=== PATIENT | female | born 1940 | race Caucasian/White ===

== ENCOUNTER → 2017-07-27 14:59 | Outpatient (CLI) | payer MEDICARE, SELFPAY ==
--- NOTE | 2017-07-27 15:03 | RAD_ITS ---
STUDY: X-RAY - RIGHT FOOT CLINICAL: Female, 76 years old. Follow-up third metatarsal fracture TECHNIQUE: 3 view(s) of the foot. COMPARISON: X-rays of the right foot on June 27, 2017 FINDINGS: Normal talus, calcaneus, and tarsal bones. Normal visualized subtalar, talonavicular, calcaneocuboid, tarsal and tarsometatarsal articulations. There is a healing fracture of the midshaft of the third metatarsal and proximal shaft of the second metatarsal. Nonbridging callus formation is noted. The fracture lines are still visualized. There is degenerative arthrosis of the metatarsophalangeal joint of the hallux with a hallux valgus deformity. Normal tibial and fibular sesamoid bones. Normal interphalangeal joint of the great toe. Normal phalanges of the great toe. Normal second through fifth metatarsophalangeal joints. Normal interphalangeal joints and phalanges of the lesser toes. The soft tissue structures are unremarkable. RAD/Foot min 3 Views IMPRESSION: Healing fractures of the proximal second and mid shaft of the third metatarsals with early callus formation. Stable alignment. Electronically Signed: Jeffrey Hollis MD, FACR at 15:46 EST , Service support ,
== END ==
PROVIDERS: Family Provider Family Medicine; PCP Family Medicine; Visit Provider Family Medicine
DX: S92.901A Unspecified fracture of right foot, initial encounter for closed fracture (principal)
CPT/HCPCS: 73630

== ENCOUNTER → 2017-08-28 09:58 | Outpatient (CLI) | payer MEDICARE, SELFPAY ==
--- NOTE | 2017-08-28 10:01 | RAD_ITS ---
STUDY: X-RAY - RIGHT FOOT CLINICAL: Female, 76 years old. Follow-up of metatarsal fracture. TECHNIQUE: 3 view(s) of the foot. COMPARISON: July 27, 2017 FINDINGS: There is generalized osteopenia unchanged. There is an inferior calcaneal spur unchanged. There are healing fractures of the proximal second and mid shaft of the third metatarsals with periosteal reaction at the fracture sites, unchanged. There is stable osteoarthrosis of the metatarsophalangeal and interphalangeal joints. The soft tissue structures are unremarkable. RAD/Foot min 3 Views IMPRESSION: Healing fractures of the second and third metatarsals. No complications. No other significant changes. Electronically Signed: Alonzo Cartagena MD at 16:56 EST , Service support ,
== END ==
PROVIDERS: Family Provider Family Medicine; PCP Family Medicine; Visit Provider Family Medicine
DX: S92.901A Unspecified fracture of right foot, initial encounter for closed fracture (principal); X58.XXXA Exposure to other specified factors, initial encounter
CPT/HCPCS: 73630

== ENCOUNTER → 2018-04-24 13:08 | Outpatient (CLI) | payer MEDICARE, SELFPAY ==
--- NOTE | 2018-04-24 13:12 | RAD_ITS ---
STUDY: X-RAY - RIGHT HAND REASON FOR EXAM: Bilateral hand pain. TECHNIQUE: 3 view(s) of the hand. COMPARISON: None. FINDINGS: There is osteopenia. Normal radiocarpal articulation. Normal distal radioulnar joint. Normal visualized carpal bones. Normal carpal articulations Normal carpometacarpal articulation of the thumb. Normal second through fifth carpometacarpal joints. Normal metacarpi. Normal metacarpophalangeal joint of the thumb. There are marginal osteophytes and severe space narrowing of the interphalangeal joint of the thumb. Normal proximal and distal phalanges of the thumb. Normal metacarpophalangeal joints of the second through fifth fingers. There are marginal osteophytes, central osseous erosions and joint space narrowing of the second through fifth distal interphalangeal joints and fifth interphalangeal joint. Normal phalanges of the second through fifth fingers. There is pericapsular calcifications at the ulnar aspect of the wrist and at the ulnar aspect of the second metacarpophalangeal joint. RAD/Hand Min 3 Views IMPRESSION: Erosive osteoarthritis. Pericapsular calcifications. Osteopenia. Electronically Signed: Thomas Mcclendon MD at 14:14 EDT Tel , Service support ,
--- NOTE | 2018-04-24 13:12 | RAD_ITS ---
STUDY: X-RAY - LEFT HAND REASON FOR EXAM: Bilateral hand pain. TECHNIQUE: 3 view(s) of the hand. COMPARISON: None. FINDINGS: There is osteopenia. Normal radiocarpal articulation. Normal distal radioulnar joint. Normal visualized carpal bones. Normal carpal articulations Normal carpometacarpal articulation of the thumb. Normal second through fifth carpometacarpal joints. Normal metacarpi. Normal metacarpophalangeal joint of the thumb. There is moderate to severe joint space narrowing of the interphalangeal joint of the thumb. Normal proximal and distal phalanges of the thumb. Normal metacarpophalangeal joints of the second through fifth fingers. There is joint space narrowing of the second through fifth distal interphalangeal joints and fifth proximal interphalangeal joint with central osseous erosions of the second and fifth distal interphalangeal joints and second proximal interphalangeal joint with marginal osteophytes of the second and fifth distal interphalangeal joints. Normal phalanges of the second through fifth fingers. There is chondrocalcinosis in the lunotriquetral ligament. RAD/Hand Min 3 Views IMPRESSION: Erosive osteoarthritis. Chondrocalcinosis. Osteopenia. Electronically Signed: Thomas Mcclendon MD at 14:12 EDT Tel , Service support ,
== END ==
PROVIDERS: Family Provider Family Medicine; PCP Family Medicine; Referring Provider Orthopaedic Surgery; Visit Provider Orthopaedic Surgery
DX: M79.641 Pain in right hand (principal); M79.642 Pain in left hand
CPT/HCPCS: 73130

== ENCOUNTER → 2018-04-25 08:09 | Outpatient (CLI) | payer MEDICARE, SELFPAY ==
[2018-04-25 10:52] LABS: AST(SGOT) 22 U/L (15-37); Alanine Aminotransfer ALT/SGPT 22 U/L (13-56); Albumin, Serum 3.7 g/dL (3.2-5.0); Alkaline Phosphatase 56 U/L (45-117); Anion Gap 13 (5-15); BUN 21 mg/dL (7-18); BUN/Creat Ratio 23.1 RATIO (10-20); Calcium,Total 8.5 mg/dL (8.5-10.1); Chloride 105 mmol/L (98-107); Cholesterol 186 mg/dL (200); Creatinine, Serum 0.91 mg/dL (0.55-1.02); EST Glomerular Filtration Rate 64 mL/min (>60); Est Glom Filt Rate - Afr Amer 77 mL/min (>60); Globulin 3.8 g/dL (2.2-4.2); Glucose 94 mg/dL (74-106); High Density Lipoprotein 71 mg/dL; Potassium 3.6 mmol/L (3.5-5.1); Protein, Total 7.5 g/dL (6.4-8.2); Sodium Level 142 mmol/L (136-145); Thyroid Stim Hormone (TSH) 1.34 uIU/mL (0.358-3.74); Triglycerides 85 mg/dL; Very Low Density Lipoprotein 17 mg/dL (5-40)
[2018-04-25 11:35] LABS: Vitamin D,25 Hydroxy 43.5 ng/mL (29.95-100.01)
== END ==
PROVIDERS: Family Provider Family Medicine; PCP Family Medicine; Visit Provider Family Medicine
DX: I10 Essential (primary) hypertension (principal); E78.00 Pure hypercholesterolemia, unspecified; M81.0 Age-related osteoporosis without current pathological fracture
CPT/HCPCS: 36415; 80053; 80061; 82306; 84443

== ENCOUNTER → 2018-04-30 07:33 | Outpatient (CLI) | payer MEDICARE, SELFPAY ==
--- NOTE | 2018-04-30 07:39 | CT_ITS ---
STUDY: CT CHEST WITH CONTRAST REASON FOR EXAM: Female, 77 years old. Follow-up of thoracic aortic aneurysm RADIATION DOSAGE (If Supplied By Facility): CTDIvol = ( 12.15 ) mGy, DLP = ( 537.78 ) mGycm TECHNIQUE: Transaxial imaging was performed following intravenous administration of 100 ml of Isovue 300 contrast material. Individualized dose optimization techniques were used for this CT. COMPARISON: Previous most recent study of 01/15/2016 FINDINGS: There is mild bilateral apical scarring. There are bilateral calcified granulomas. There is no demonstrated pleural abnormality. The heart size is within normal limits. There is no pericardial effusion. Coronary arterial calcifications are present. Normal mediastinum. Normal hilar regions. The main pulmonary artery measures up to 3.1 cm in diameter. There are calcified plaques of the aortic arch. The ascending thoracic aorta is mildly ectatic measuring up to 3.7 cm in diameter. There are multi-level degenerative changes of the thoracic spine. There are multiple calcified splenic granulomas. CT/Chest WITH Contrast IMPRESSION: 1. Ascending thoracic aorta is mildly ectatic measuring up to 3.7 cm in diameter. This is slightly decreased from the previous study where it measured up to 4.0 cm in diameter. 2. The main pulmonary artery measures up to 3.1 cm in diameter. This may be associated with pulmonary hypertension. 3. Degenerative changes of the thoracic spine. 4. Calcified splenic granulomas. Electronically Signed: Carlton Floyd MD at 17:34 EST , Service support ,
== END ==
PROVIDERS: Family Provider Family Medicine; PCP Family Medicine; Referring Provider Family Medicine; Visit Provider Family Medicine
DX: I71.9 Aortic aneurysm of unspecified site, without rupture (principal)
CPT/HCPCS: 71260; Q9967

== ENCOUNTER → 2018-05-02 10:55 | Outpatient (CLI) | payer MEDICARE, SELFPAY ==
--- NOTE | 2018-05-02 14:58 | NEURO ---
NCS and/or EMG Patient Report Ordering Doctor: Helen Dneney DATE OF SERVICE: 05/02/18 Sena Coughlin is a 77-year-old female who presents for electrodiagnostic testing of the upper limbs. She reports numbness and tingling in the first 3 digits of both hands. Symptoms have been present for approximately 1 year on the left side and 6 months on the right side. Electrodiagnostic findings: The median motor nerve demonstrates prolonged distal latency with normal amplitude and conduction velocity bilaterally. Ulnar motor responses are within normal limits bilaterally. Normal ulnar F wave bilaterally. Borderline prolonged median F-wave bilaterally. Prolonged median sensory latencies noted bilaterally. Normal ulnar and radial sensory responses. Needle EMG, all muscles tested in the upper limbs showed no evidence of denervation with normal motor unit action potentials. Electrodiagnostic impression: This is an abnormal study in the upper limbs. 1. Electrodiagnostic findings demonstrate bilateral median mononeuropathy. This is consistent with a moderate bilateral carpal tunnel syndrome. If there are any further questions, please do not hesitate to contact me
== END ==
PROVIDERS: Family Provider Family Medicine; PCP Family Medicine; Referring Provider Orthopaedic Surgery; Visit Provider Orthopaedic Surgery
DX: G56.03 Carpal tunnel syndrome, bilateral upper limbs (principal)
CPT/HCPCS: 95886; 95913

== ENCOUNTER 2018-05-18 12:59 | Day surgery (SDC) | payer MEDICARE, SELFPAY ==
[2018-05-18 13:36] VITALS: BP 156/66; PULSE 69; RESP 16; TEMP 36.8; O2SAT 99; BMI 28.8
[2018-05-18] MEDS: Cefazolin 2 GM in 0.9% Normal Saline 100 ML IV (14:39)
--- NOTE | 2018-05-18 14:56 | DCINST_ITS ---
Discharge Diet: No Restrictions Discharge Activity: May Not Drive May shower in (days): 1 Ice area for (Minutes): 20 - Every hour while awake. Weight Bearing Status: Weight bearing as tolerated Keep extremity elevated above heart level: Operative Extremity Call your doctor if your incision/area has: Continuous Slow Oozing, Sudden Increased Bleeding, Increased Pain/ Swelling, Increased Redness, Foul Smelling D ischarge Call your doctor if you observe: Fever of 101 or Higher, Coldness, Increased Pain, Numbness or Tingling, Change in Color, Calf discomfort Allergies/Adverse Reactions: Allergies estrogens, conjugated [From Prempro] Adverse Reaction (Severe, Verified 05/15/18 09:57) leg cramps medroxyprogesterone [From Prempro] Adverse Reaction (Severe, Verified 05/15/18 09:57) leg cramps Medications to take at Discharge aspirin 81 mg tablet,delayed release 81 mg PO QDAY 12/20/17 calcium carbonate 600 mg-vitamin D3 1,000 unit-vitamin K2 90 mcg tab 1 tab PO QDAY tab 12/20/17 cholecalciferol (vitamin D3) 1,000 unit tablet 2,000 unit PO QDAY tab 12/20/17 furosemide 40 mg tablet 40 mg PO QDAY 12/20/17 ibuprofen 200 mg capsule 200 mg PO TID-QID PRN 12/20/17 lutein 6 mg tablet 6 mg PO QDAY 12/20/17 nabumetone 500 mg tablet 500 mg PO BID 12/20/17 simvastatin 40 mg tablet 40 mg PO QPM 12/20/17 Acetaminophen/Codeine #3 [Tylenol #3 Tablet] 1 - 2 tablet PO Q6H PRN PRN #20 tablet 05/18/18 The following prescriptions were given: Acetaminophen/Codeine #3 [Tylenol #3 Tablet] 1 - 2 tablet PO Q6H PRN PRN #20 tablet PRN Reason: Pain Primary Care Physician: Matias Ca MD [Primary Care Provider] - Test Results: Test results from this visit will be discussed in further detail at your follow- up appointment, if applicable. Please Follow Up With: Helen Denney, DO - [phone]
[2018-05-18] MEDS: Triamcinolone Acetonide 40 MG/ML Vial (15:08)
[2018-05-18] MEDS: Mupirocin Ointment 22gm Tube 1 APPLIC (15:08)
[2018-05-18] MEDS: Ropivacaine 0.5% 30 ML Vial (15:09)
--- NOTE | 2018-05-18 15:11 | PCM.OPRPT ---
Report of Operation Date of Procedure: 05/18/18 Pre-Operative Diagnosis: bilateral carpal tunnel syndrome Post-Operative Diagnosis: same Surgery/Procedure Performed:: left carpal tunnel release, right carpal tunnel injection Type of Anesthesia:: Ronn Pinzon Anesthesiologist: Marty Andrews Estimated Blood Loss (mL): minimal Fluids Replaced: 500cc lr Description of Procedure: Preoperative note Patient is a { 77 } patient with nerve conduction study confirming bilateral carpal tunnel syndrome. Patient failed conservative treatment for her carpal tunnel elected proceed with left carpal tunnel release right carpal tunnel injection. Risks benefits and alternatives surgery discussed with patient. Risks including but not limited to blood loss, blood clot, infection, neurovascular injury, failure procedure, loss of life and loss of limb. Patient is aware like proceed with left carpal tunnel release, right carpal tunnel injection Operative note Patient seen and examined preoperative holding area. Left hand was marked. History and physical and consent reviewed. Patient was brought to the operating room placed supine on the operating table. Sign in, anesthesia, antibiotics were administered. Left upper extremity was prepped and draped after [place] block was initiated. All bony prominences well-padded SCDs placed on bilateral lower extremities. We marked out our incisions for our carpal tunnel release at the intersection of Justin's line in the fourth ray flexed. We extended about a centimeter and a half. Timeout was performed. We then checked ensure that the Ronn block was working with pickups which it was. We then used a 15 blade to make a skin incision. We then dissected down tenotomy syllable of the transverse carpal ligament. We then used a new 15 blade cut through the transverse carpal ligament down to the level of the median nerve. We then further released the median nerve the combination of the 15 blade and tenotomies. The nerve was grayish in color and adherent to the transverse carpal ligament volarly. We released the transverse carpal ligament distally to the fat pad and then proximally under standard technique. We then palpated to ensure that we released all of the transverse carpal ligament which we did. We irrigated the incision with copious amounts of sterile saline. All bleeders were coagulated. The incision was closed with interrupted 4-0 nylon stitches. Tourniquet was deflated for total working time of 8 minutes. under sterile technique, right carpal tunnel was injected. bandaid applied. Patient tolerated procedure well there were no complications. Patient transferred to recovery room in stable condition. Postoperative note Hospital pharmacy has prescription Leave dressing clean dry and intact Follow-up in 2 weeks Call with concerns This note was generated with [employer] dictation software. It may contain incorrect words, spelling, and punctuation that were not noted in checking the note before signing.
[2018-05-18 15:21] VITALS: BP 122/56; BP 156/66; PULSE 64; RESP 16; TEMP 36.2; O2SAT 98
[2018-05-18 15:26] VITALS: BP 131/62; BP 156/66; PULSE 64; RESP 16; O2SAT 97
[2018-05-18 15:31] VITALS: BP 131/63; BP 156/66; PULSE 65; RESP 16; O2SAT 98
[2018-05-18 15:36] VITALS: BP 147/62; BP 156/66; PULSE 64; RESP 16; TEMP 36.2; O2SAT 99
[2018-05-18 16:18] VITALS: BP 156/66
== END 2018-05-18 16:19 | disposition home or self-care (01) ==
LOC: SDC 13:00 → AC 13:24
PROVIDERS: Family Provider Family Medicine; PCP Family Medicine; Referring Provider Orthopaedic Surgery; Visit Provider Orthopaedic Surgery
PROC: (CPT 64721; principal; 2018-05-18 14:50)
DX: G56.03 Carpal tunnel syndrome, bilateral upper limbs (principal); E78.5 Hyperlipidemia, unspecified; I71.2 Thoracic aortic aneurysm, without rupture; I44.7 Left bundle-branch block, unspecified; Z79.02 Long term (current) use of antithrombotics/antiplatelets; Z79.899 Other long term (current) drug therapy
CPT/HCPCS: 20605; 64721; J7120; J2405

== ENCOUNTER → 2018-07-04 11:14 | Outpatient (CLI) | payer MEDICARE, SELFPAY ==
[2018-05-31 12:33] VITALS: BMI 28.8
--- NOTE | 2018-07-04 11:21 | BI_ITS ---
MAMMOGRAPHY - BILATERAL SCREENING REASON FOR EXAM: Female, 77 years old. Routine annual screening examination. PERTINENT HISTORY: Mother with breast cancer. TECHNIQUE: Digital bilateral breast julianna (3D mammographic acquisition) in the CC and MLO projections. 2-D mediolateral oblique (MLO) and craniocaudad (CC) views of both breasts were obtained. CAD: Full Field Digital Mammography with Computer Added Detection was performed. COMPARISON: Comparison is made with prior study dated May 11, 2017 and May 05, 2016. FINDINGS: Breast Composition: There are scattered areas of fibroglandular density. There are no dominant masses or suspicious calcifications. No other significant abnormalities are identified. There has been no significant change since the prior study. BI/SCREENING MAMM (CAD), BILAT IMPRESSION: Stable bilateral screening mammogram. Yearly follow-up mammogram recommended. (A) ASSESSMENT CATEGORY: BIRADS Category 1: Negative. A letter regarding these results will be sent to the patient by the facility within 30 days. Approximately 10% of breast cancers are not detected by mammography. A normal mammogram should not delay biopsy of a clinically suspicious abnormality. [id number] Electronically Signed: Joshua Meyer MD at 13:10 EST Tel [phone], Service support ,
--- NOTE | 2018-07-04 11:39 | BD_ITS ---
STUDY: DUAL ENERGY X-RAY ABSORPTIOMETRY / DXA REASON FOR EXAM: Female, 77 years old. The patient is postmenopausal. Loss of height. TECHNIQUE: Bone Mineral Density (BMD) measurements of lumbar spine and bilateral hips were obtained. COMPARISON: Comparison is made with prior study dated May 05, 2016. FINDINGS: Lumbar Spine (L1-L4): g/cm2 (0.960) / T-score (-1.7) / Z-score (0.1) Findings are suggestive of osteopenia with a moderate fracture risk. Left Femur Total: g/cm2 (0.813) / T-score (-1.5) / Z-score (0.3) Left Femoral Neck: g/cm2 (0.797) / T-score (-1.7) / Z-score (0.3) Right Femur Total: g/cm2 (0.800) / T-score (-1.6) / Z-score (0.2) Right Femoral Neck: g/cm2 (0.775) / T-score (-1.9) / Z-score (0.1) The T-Scores on the most recent prior examination were: Lumbar Spine (L1-L4): There has been improvement of bone density since the previous examination. Left Femur Total: which represents a worsening of 8.8%. Right Femur Total: which represents a worsening of 3.7%. BD/Dexa Bone Density Study IMPRESSION: The patient is considered osteopenic as outlined below according to World Arjun Organization (WHO) criteria with a moderate fracture risk. There has been worsening of bone density since the previous examination. Reference Information: The T-score is the number of standard deviations above or below the standard which is normal for young adults at their peak bone mineral density. The World Health Organization (WHO) interprets the T-scores as follows: Above -1 Normal bone density Between -1 and -2.5 Osteopenia Equal to / or below -2.5 Osteoporosis As a practical clinical guideline, osteopenia may be graded as follows: Mild -1 through -1.5 Moderate -1.6 through -2.0 Severe -2.1 through -2.4 The Z-score is the number of standard deviations above or below age-matched controls. A Z-score of less than -1.5 would be considered abnormal. References: 1. NIH Osteoporosis and Related Bone Diseases http://www.osteo.org 2. International Society for Clinical Densitometry http://www.iscd.org 3. National Osteoporosis Foundation http://www.nof.org Electronically Signed: Joshua Meyer MD at 14:32 EST Tel [phone], Service support ,
== END ==
PROVIDERS: Family Provider Family Medicine; PCP Family Medicine; Referring Provider Family Medicine; Visit Provider Family Medicine
DX: Z12.31 Encounter for screening mammogram for malignant neoplasm of breast (principal); Z78.0 Asymptomatic menopausal state
CPT/HCPCS: 77063; 77067; 77080

== ENCOUNTER → 2018-10-22 | Outpatient (CLI) | payer MEDICARE, SELFPAY ==
[2018-08-20 10:19] VITALS: BMI 28.8
[2018-10-22 12:42] LABS: Anion Gap 6 (5-15); BUN 26 mg/dL (7-18); BUN/Creat Ratio 25.2 RATIO (10-20); Calcium,Total 8.7 mg/dL (8.5-10.1); Chloride 107 mmol/L (98-107); Creatinine, Serum 1.03 mg/dL (0.55-1.02); EST Glomerular Filtration Rate 55 mL/min (>60); Est Glom Filt Rate - Afr Amer 67 mL/min (>60); Glucose 92 mg/dL (74-106); Potassium 3.8 mmol/L (3.5-5.1); Sodium Level 143 mmol/L (136-145)
== END | disposition home or self-care (01) ==
LOC: MFPLAB 09:30
PROVIDERS: PCP Family Medicine; Visit Provider Family Medicine
DX: I10 Essential (primary) hypertension (principal)
CPT/HCPCS: 36415; 80048

== ENCOUNTER → 2019-03-01 | Outpatient (CLI) | payer MEDICARE, SELFPAY ==
[2019-01-28 11:35] VITALS: BMI 27.1
--- NOTE | 2019-03-01 10:02 | RAD_ITS ---
STUDY: X-RAY - LEFT SHOULDER REASON FOR EXAM: Female, 78 years old. Increasing right shoulder pain. TECHNIQUE: 4 view(s) of the shoulder. COMPARISON: Comparison is made with prior examination dated August 08, 2013. FINDINGS: There is moderate degenerative arthrosis of the glenohumeral articulation. There is hypertrophic osteoarthrosis of the acromioclavicular joint with inferior osseous spur formation. Normal acromion. Normal humeral head and visualized proximal humerus. There is periarticular soft tissue calcification consistent with a calcific tendinitis. Findings suggestive of rotator cuff changes due to the decreased distance between the humeral head and acromion. Normal visualized pulmonary apex. 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 Calcific tendinitis. Findings suggestive of a rotator cuff issue. Electronically Signed: Joshua Meyer, at 15:08 EDT , Service support ,
== END | disposition home or self-care (01) ==
LOC: HPRAD 09:54
PROVIDERS: Family Provider Family Medicine; PCP Family Medicine; Referring Provider Family Medicine; Visit Provider Family Medicine
DX: M25.512 Pain in left shoulder (principal)
CPT/HCPCS: 73030

== ENCOUNTER → 2019-04-22 | Outpatient (CLI) | payer MEDICARE, SELFPAY ==
[2019-01-28 11:35] VITALS: BMI 27.1
[2019-04-22 10:03] LABS: Erythrocyte Sedimentation Rate 12 mm/hr (0-30)
[2019-04-22 10:05] LABS: Hematocrit 35.9 % (37-47); Hemoglobin 11.5 g/dL (12.0-15.0); Mean Corpuscular Volume 96.8 fL (81-99); Mean Platelet Vol. 11.7 fl (6.2-12.0); Platelet Count 202 K/mm3 (150-450); RBC Distribution Width CV 12.2 % (11.6-14.6); RBC Distribution Width SD 43.6 fl (35.1-43.9); Red Blood Count 3.71 M/mm3 (4.2-5.4); White Blood Count 4.6 K/mm3 (4.4-11.0)
[2019-04-22 10:21] LABS: ALB/GLOB Ratio 1.1 RATIO (0.9-2.4); AST(SGOT) 21 U/L (15-37); Alanine Aminotransfer ALT/SGPT 24 U/L (13-56); Albumin, Serum 3.9 g/dL (3.2-5.0); Alkaline Phosphatase 63 U/L (45-117); BUN 20 mg/dL (7-18); BUN/Creat Ratio 21.6 RATIO (10-20); Chloride 104 mmol/L (98-107); Cholesterol 198 mg/dL (200); Creatinine, Serum 0.93 mg/dL (0.55-1.02); EST Glomerular Filtration Rate 62 mL/min (>60); Est Glom Filt Rate - Afr Amer 75 mL/min (>60); Globulin 3.6 g/dL (2.2-4.2); Glucose 98 mg/dL (74-106); Potassium 3.5 mmol/L (3.5-5.1); Protein, Total 7.5 g/dL (6.4-8.2); Sodium Level 141 mmol/L (136-145); Triglycerides 55 mg/dL; Vitamin B12 576 pg/mL (211-911); Vitamin D,25 Hydroxy 39.8 ng/mL (29.95-100.01)
[2019-04-22 10:22] LABS: Anion Gap 6 (5-15); Ferritin 35 ng/mL (8-252); High Density Lipoprotein 85 mg/dL; Very Low Density Lipoprotein 11 mg/dL (5-40)
== END | disposition home or self-care (01) ==
LOC: MFPLAB 08:57
PROVIDERS: Family Provider Family Medicine; PCP Family Medicine; Visit Provider Family Medicine
DX: R41.3 Other amnesia (principal); E78.00 Pure hypercholesterolemia, unspecified
CPT/HCPCS: 80053; 80061; 82306; 82607; 82728; 84443; 85027; 85652

== ENCOUNTER → 2019-04-30 | Outpatient (CLI) | payer MEDICARE, SELFPAY ==
[2019-01-28 11:35] VITALS: BMI 27.1
--- NOTE | 2019-04-30 07:17 | CT_ITS ---
STUDY: CT CHEST WITH CONTRAST REASON FOR EXAM: Female, 78 years old. History of thoracic aortic aneurysm. RADIATION DOSAGE (If Supplied By Facility): CTDIvol = ( 14.12 ) mGy, DLP = ( 529.02 ) mGycm TECHNIQUE: Transaxial imaging was performed following intravenous administration of IV 100mL Isovue-370 100. Multiplanar coronal and sagittal images were reformatted. Individualized dose optimization techniques were used for this CT. COMPARISON: Comparison is made with prior examination dated April 30, 2018. FINDINGS: Stable mild scarring at the lung apices bilaterally. Scattered calcified granulomas. There is no demonstrated pleural abnormality. Normal heart and pericardium. There are multiple small lymph nodes within the mediastinum, which are normal in size and morphology most compatible with reactive lymph hyperplasia. Normal hilar regions. Normal enhanced pulmonary arteries. The descending thoracic aorta has a transverse dimension of 3.9 cm. There is no evidence of dissection. Scattered atherosclerotic calcific plaques of the descending thoracic aorta. There are multi-level degenerative changes of the thoracic spine. Calcified splenic granulomas. CT/Chest WITH Contrast IMPRESSION: Ectasia of the ascending thoracic aorta with a transverse dimension of 3.9 cm. Electronically Signed: Joshua Meyer, at 13:56 EST , Service support ,
== END | disposition home or self-care (01) ==
PROVIDERS: Family Provider Family Medicine; PCP Family Medicine; Referring Provider Family Medicine; Visit Provider Family Medicine
DX: I71.9 Aortic aneurysm of unspecified site, without rupture (principal)
CPT/HCPCS: 71260; Q9967

== ENCOUNTER 2019-06-28 07:01 | Day surgery (SDC) | payer MEDICARE, SELFPAY ==
[2019-06-06 12:57] VITALS: BMI 27.1
[2019-06-28] VITALS (7 sets, daily range): BP systolic 98–152; BP diastolic 73–84; PULSE 65–73; RESP 15–16; TEMP 36.4–36.6; O2SAT 94–99; BMI 28.0
[2019-06-28] MEDS: Lactated Ringers 1,000 ML 100 ML IV (07:40)
--- NOTE | 2019-06-28 07:40 | PCM.HP.BLA ---
History and Physical I have re-examined the patient. There are no clinical changes since date of exam. Intake Vital Signs 06/06/19 Body Mass Index (BMI) 27.1 Intake Visit Reasons: RIGHT WRIST Accompanied by: Self Is patient in pain?: Yes Pain scale (1-10): 5 Allergies estrogens, conjugated [From Prempro] Adverse Reaction (Severe, Verified 01/28/19 11:35) leg cramps medroxyprogesterone [From Prempro] Adverse Reaction (Severe, Verified 01/28/19 11:35) leg cramps Medications aspirin 81 mg tablet,delayed release 81 mg PO QDAY 12/20/17 [History Confirmed 06/06/19] calcium carbonate 600 mg-vitamin D3 1,000 unit-vitamin K2 90 mcg tab 1 tab PO QDAY tab 12/20/17 [History Confirmed 06/06/19] furosemide 40 mg tablet 40 mg PO QDAY 12/20/17 [History Confirmed 06/06/19] lutein 6 mg tablet 6 mg PO QDAY 12/20/17 [History Confirmed 06/06/19] nabumetone 500 mg tablet 500 mg PO BID 12/20/17 [History Confirmed 06/06/19] simvastatin 40 mg tablet 40 mg PO QPM 12/20/17 [History Confirmed 06/06/19] multivitamin with minerals-folic acid 200 mcg chewable tablet 400 mcg PO DAILY tab 01/28/19 [History Confirmed 06/06/19] [facility] Medical History (Updated 01/24/19 @ 11:57 by Nora Mcgee) Thoracic aortic aneurysm without rupture (Chronic) Hyperlipidemia (Chronic) Long-term use of high-risk medication (Chronic) Premature atrial contractions (Acute) Bundle branch block, left hemiblock (Acute) Nonrheumatic mitral (valve) stenosis (Chronic) Nonrheumatic aortic (valve) stenosis (Chronic) Fibromyalgia (Acute) Foot fracture, right (Acute) Surgical History (Updated 01/28/19 @ 11:38 by Nora Mcgee) h/o left carpal tunnel release (Resolved) Family History (Updated 12/20/17 @ 09:37 by Nora Mcgee) Father CHF (congestive heart failure) Social History (Updated 06/06/19 @ 14:04 by Helen Denney DO) Smoking Status: Never smoker alcohol intake: never HPI RIGHT WRIST: Details: Parts of this documentation were recorded by a scribe, this documentation accurately reflects the service provided and the decisions made by me, Helen Denney, DO 06/06/19 [id number]. SOL SAUER is a 78 year old F here today for right hand pain. Patient states she has pain over the palm of her hand and the pain radiates into her right 1st through 3rd fingers. Patient states she has had this pain for a few months. Patient has been wearing a night brace which is the only way she can sleep at night. SHe had a steroid injection of her right wrist on 04/2018 and states that this was effective for a small amt of time. Patient had x-rays in 03/2018. She had an EMG completed in 2018 which showed carpal tunnel syndrome. ROS Musc Denies joint pain, Denies joint swelling, Reports limited joint movement, Reports numbness, Reports radiating pain into limb, Reports stiffness, Reports tingling Skin/Breast Denies redness, Denies lesions, Denies itching, Denies rash, Denies skin swelling Neuro Yes numbness, Yes tingling Ortho Exam Right Wrist/Hand Right Wrist: Yes ROM-Extension 0-60, ROM-Flexion 0-80, ROM-Pronation 0-80, ROM-Supination 0-90 and Durken's Test Sensation: Radial: I, Ulnar: I, Median: D WRIST: thenar wasting No rales rhonchi wheezing, no about abdominal pain, no audible bruits Assessment & Plan Problems 1. Carpal tunnel syndrome, right G56.01 Plan Spoke with her about the surgery procedure and recovery. Reviewed the pre-operative plans with the patient. Risks and benefits of the procedure were fully explained, including but not limited to infection, neurovascular injury, continued pain, arthritis, stiffness, need for further surgery, re-injury, DVT, PE, general risks of anesthesia, and loss of limb or life. The patient understands all the risks and does wish to proceed with written consent. Follow up for 2 week post op or sooner if pain, swelling, numbness or associated symptoms, or concerns develop. All questions answered. Patient in agreement of plan. Coding Level of Care Code Off vis,est,level 4 Diagnoses Carpal tunnel syndrome, right G56.01
--- NOTE | 2019-06-28 07:41 | PCM.DC.ORTHO ---
Discharge Diet: No Restrictions - leave dressing in place, follow up in 10-14 days, call with concerns Discharge Activity: May Not Drive May shower in (days): 1 Ice area for (Minutes): 20 - Every hour while awake. Weight Bearing Status: Weight bearing as tolerated Keep extremity elevated above heart level: Operative Extremity Call your doctor if your incision/area has: Continuous Slow Oozing, Sudden Increased Bleeding, Increased Pain/ Swelling, Increased Redness, Foul Smelling Discharge Call your doctor if you observe: Fever of 101 or Higher, Coldness, Increased Pain, Numbness or Tingling, Change in Color, Calf discomfort Allergies/Adverse Reactions: Allergies estrogens, conjugated [From Prempro] Adverse Reaction (Severe, Verified 06/28/19 07:19) leg cramps medroxyprogesterone [From Prempro] Adverse Reaction (Severe, Verified 06/28/19 07:19) leg cramps Medications to take at Discharge aspirin 81 mg tablet,delayed release 81 mg PO QDAY 12/20/17 calcium carbonate 600 mg-vitamin D3 1,000 unit-vitamin K2 90 mcg tab 1 tab PO QDAY tab 12/20/17 furosemide 40 mg tablet 40 mg PO QDAY 12/20/17 lutein 6 mg tablet 6 mg PO QDAY 12/20/17 nabumetone 500 mg tablet 500 mg PO BID 12/20/17 simvastatin 40 mg tablet 40 mg PO QPM 12/20/17 multivit with min-folic acid 200 mcg chewable tablet 400 mcg PO DAILY tab 01/28/19 Acetaminophen/Diphenhydramine [Tylenol Pm Ex-Strength Caplet] 1 ea PO QHS 06/21/19 Carboxymethylcellulose Sodium [Thera Tears] 15 ml OP PRN PRN 06/21/19 Diphenhydramine HCl [Allergy Relief] 25 mg PO DAILY 06/21/19 Ibuprofen [Motrin] 800 mg PO TID PRN PRN 06/21/19 Mineral Oil, Light/Mineral Oil [Soothe Xp Eye Drops] 1 drp EACH EYE DAILY 06/21/19 Acetaminophen/Codeine #3 [Tylenol #3 Tablet] 1 - 2 tablet PO Q6H PRN PRN #30 tablet 06/28/19 The following prescriptions were given: Acetaminophen/Codeine #3 [Tylenol #3 Tablet] 1 - 2 tablet PO Q6H PRN PRN #30 tablet PRN Reason: Pain Transmission Status: Sent to [facility] Primary Care Physician: Matias Ca MD [Primary Care Provider] - Test Results: Test results from this visit will be discussed in further detail at your follow-up appointment, if applicable. Please Follow Up With: Helen Denney, DO - [phone]
--- NOTE | 2019-06-28 07:42 | OP.PCM_ITS ---
Report of Operation Date of Procedure: 06/28/19 Pre-Operative Diagnosis: right carpal tunnel syndrome Post-Operative Diagnosis: same Surgery/Procedure Performed:: right carpal tunnel release Type of Anesthesia:: Ronn Pinzon Anesthesiologist: Marty Andrews Estimated Blood Loss (mL): min Fluids Replaced: 800cc lr Description of Procedure: Preoperative note Patient is a 78 year old patient with nerve conduction study confirming carpal tunnel syndrome. Patient failed conservative treatment for her carpal tunnel elected proceed with right carpal tunnel release. Risks benefits and alternatives surgery discussed with patient. Risks including but not limited to blood loss, blood clot, infection, neurovascular injury, failure procedure, loss of life and loss of limb. Patient is aware like proceed with right carpal tunnel release. Operative note Patient seen and examined preoperative holding area. right hand was marked. History and physical and consent reviewed. Patient was brought to the operating room placed supine on the operating table. Sign in, anesthesia, antibiotics were administered. right upper extremity was prepped and draped after [place] block was initiated. All bony prominences well-padded SCDs placed on bilateral lower extremities. We marked out our incisions for our carpal tunnel release at the intersection of Justin's line in the fourth ray flexed. We extended about a centimeter and a half. Timeout was performed. We then checked ensure that the Ronn block was working with pickups which it was not so we performed a local block of 10cc 1% lidocaine. We then used a 15 blade to make a skin incision. We then dissected down tenotomy syllable of the transverse carpal ligament. We then used a new 15 blade cut through the transverse carpal ligament down to the level of the median nerve. We then further released the median nerve the combination of the 15 blade and tenotomies. The nerve was grayish in color and adherent to the transverse carpal ligament volarly. We released the transverse carpal ligament distally to the fat pad and then proximally under standard technique. We then palpated to ensure that we released all of the transverse carpal ligament which we did. We irrigated the incision with copious amounts of sterile saline. All bleeders were coagulated. The incision was closed with interrupted 4-0 nylon stitches. Tourniquet was deflated for total working time of 9 minutes. Patient tolerated procedure well there were no complications. Patient transferred to recovery room in stable condition. Postoperative note Hospital pharmacy has prescription Leave dressing clean dry and intact Follow-up in 2 weeks Call with concerns This note was generated with [employer] dictation software. It may contain incorrect words, spelling, and punctuation that were not noted in checking the note before signing
[2019-06-28] MEDS: Cefazolin 2 GM in 0.9% Normal Saline 100 ML IV (08:35)
[2019-06-28] MEDS: Mupirocin Ointment 22gm Tube 1 APPLIC (08:49)
[2019-06-28] MEDS: HYDROcodone Bitartrate/Apap 5/325 Tablet PO (09:55)
== END 2019-06-28 10:23 | disposition home or self-care (01) ==
LOC: SDC 07:02 → AC 07:04
PROVIDERS: Family Provider Family Medicine; PCP Family Medicine; Referring Provider Orthopaedic Surgery; Visit Provider Orthopaedic Surgery
PROC: (CPT 64721; principal; 2019-06-28 08:30)
DX: G56.01 Carpal tunnel syndrome, right upper limb (principal); E78.5 Hyperlipidemia, unspecified; Z79.82 Long term (current) use of aspirin; Z79.899 Other long term (current) drug therapy
CPT/HCPCS: 64721; J7120

== ENCOUNTER → 2019-08-06 | Outpatient (CLI) | payer MEDICARE, SELFPAY ==
[2019-07-11 14:02] VITALS: BMI 28.0
--- NOTE | 2019-08-06 12:53 | BI_ITS ---
MAMMOGRAPHY - BILATERAL SCREENING REASON FOR EXAM: Female, 78 years old. Routine annual screening examination. PERTINENT HISTORY: Mother with breast cancer. TECHNIQUE: Digital bilateral breast eva (3D mammographic acquisition) in the CC and MLO projections. 2-D mediolateral oblique (MLO) and craniocaudad (CC) views of both breasts were obtained. CAD: Full Field Digital Mammography with Computer Added Detection was performed. COMPARISON: Comparison is made with prior examination dated July 04, 2018 and May 11, 2017. FINDINGS: Breast Composition: There are scattered areas of fibroglandular density. There are no dominant masses or suspicious calcifications. No other significant abnormalities are identified. There has been no significant change since the prior study. BI/SCREEN MAMM (CAD) W/EVA BILAT IMPRESSION: Stable bilateral screening mammogram. Yearly follow-up mammogram recommended. (A) ASSESSMENT CATEGORY: BIRADS Category 1: Negative. A letter regarding these results will be sent to the patient by the facility within 30 days. Approximately 10% of breast cancers are not detected by mammography. A normal mammogram should not delay biopsy of a clinically suspicious abnormality. [id number] Electronically Signed: Joshua Meyer, at 14:23 EST , Service support ,
== END | disposition home or self-care (01) ==
LOC: OPBI 12:51
PROVIDERS: PCP Family Medicine; Referring Provider Family Medicine; Visit Provider Family Medicine
DX: Z12.31 Encounter for screening mammogram for malignant neoplasm of breast (principal)
CPT/HCPCS: 77063; 77067

== ENCOUNTER → 2019-10-15 | Outpatient (CLI) | payer MEDICARE, SELFPAY ==
[2019-08-08 12:52] VITALS: BMI 28.0
[2019-10-15 12:04] LABS: Vitamin D,25 Hydroxy 52.8 ng/mL
[2019-10-15 12:23] LABS: Anion Gap 5 (5-15); BUN 27 mg/dL (7-18); Calcium,Total 8.8 mg/dL (8.5-10.1); Chloride 107 mmol/L (98-107); Cholesterol 185 mg/dL (200); EST Glomerular Filtration Rate 64 mL/min (>60); Est Glom Filt Rate - Afr Amer 78 mL/min (>60); Glucose 100 mg/dL (74-106); High Density Lipoprotein 73 mg/dL; Sodium Level 141 mmol/L (136-145); Triglycerides 77 mg/dL; Very Low Density Lipoprotein 15 mg/dL (5-40)
== END | disposition home or self-care (01) ==
LOC: MTLAB 10:27
PROVIDERS: PCP Family Medicine; Referring Provider Family Medicine; Visit Provider Family Medicine
DX: E78.00 Pure hypercholesterolemia, unspecified (principal); I10 Essential (primary) hypertension; E55.9 Vitamin D deficiency, unspecified
CPT/HCPCS: 36415; 80048; 80061; 82306

== ENCOUNTER → 2020-04-21 10:40 | Outpatient (CLI) | payer MEDICARE, SELFPAY ==
[2020-02-03 13:23] VITALS: BMI 27.4
[2020-04-21 11:27] LABS: Hematocrit 35.8 % (37-47); Hemoglobin 11.4 g/dL (12.0-15.0); Mean Corp Hgb Conc 31.8 g/dL (32-36); Mean Corpuscular Hgb 30.6 pg (27.0-32.0); Mean Platelet Vol. 12.2 fl (6.2-12.0); Platelet Count 204 K/mm3 (150-450); RBC Distribution Width CV 12.4 % (11.6-14.6); RBC Distribution Width SD 43.2 fl (35.1-43.9); Red Blood Count 3.73 M/mm3 (4.2-5.4); White Blood Count 5.7 K/mm3 (4.4-11.0)
[2020-04-21 12:01] LABS: Vitamin B12 595 pg/mL (211-911); Vitamin D,25 Hydroxy 41.1 ng/mL
[2020-04-21 12:08] LABS: AST(SGOT) 23 U/L (15-37); Alanine Aminotransfer ALT/SGPT 23 U/L (13-56); Albumin, Serum 3.8 g/dL (3.2-5.0); Alkaline Phosphatase 70 U/L (45-117); Anion Gap 6 (5-15); BUN 22 mg/dL (7-18); BUN/Creat Ratio 22.7 RATIO (10-20); Calcium,Total 9.3 mg/dL (8.5-10.1); Chloride 108 mmol/L (98-107); Creatinine, Serum 0.97 mg/dL (0.55-1.02); EST Glomerular Filtration Rate 59 mL/min (>60); Est Glom Filt Rate - Afr Amer 72 mL/min (>60); Globulin 3.7 g/dL (2.2-4.2); Glucose 97 mg/dL (74-106); Potassium 3.9 mmol/L (3.5-5.1); Protein, Total 7.5 g/dL (6.4-8.2); Sodium Level 141 mmol/L (136-145); Thyroid Stim Hormone (TSH) 2.32 uIU/mL (0.358-3.74)
== END ==
PROVIDERS: PCP Family Medicine; Referring Provider Physician Assistant Surgical; Visit Provider Physician Assistant Surgical
DX: S43.422A Sprain of left rotator cuff capsule, initial encounter (principal); E55.9 Vitamin D deficiency, unspecified; R41.3 Other amnesia
CPT/HCPCS: 36415; 80053; 82306; 82607; 84443; 85027

== ENCOUNTER → 2020-07-07 14:40 | Outpatient (CLI) | payer MEDICARE, SELFPAY ==
[2020-02-03 13:23] VITALS: BMI 27.4
--- NOTE | 2020-07-07 15:04 | CT_ITS ---
STUDY: CT CHEST WITH CONTRAST REASON FOR EXAM: Female, 79 years old. AORTIC ANEURYSM WITHOUT RUPTURE FOLLOW UP RADIATION DOSAGE (If Supplied By Facility): CTDIvol = ( 11.21 ) mGy, DLP = ( 332.51 ) mGycm TECHNIQUE: Transaxial imaging was performed following intravenous administration of 100ML OF ISOVUE 300. Multiplanar coronal and sagittal images were reformatted. Individualized dose optimization techniques were used for this CT. COMPARISON: Comparison is made with prior examination dated 04/30/2019. FINDINGS: Calcified granuloma in the right upper lobe. Stable linear scarring at the left lung base. There is no demonstrated pleural abnormality. Normal heart and pericardium. Normal mediastinum. Normal hilar regions. Normal enhanced pulmonary arteries. Stable ectasia of the ascending thoracic aorta with a transverse dimension of 3.9 cm. There are multi-level degenerative changes of the thoracic spine. There is no demonstrated abnormality of the visualized upper abdomen. CT/Chest WITH Contrast IMPRESSION: Stable examination. Electronically Signed: Joshua Meyer, at 15:42 EST , Service support ,
== END ==
PROVIDERS: PCP Family Medicine; Referring Provider Family Medicine; Visit Provider Family Medicine
DX: I71.9 Aortic aneurysm of unspecified site, without rupture (principal)
CPT/HCPCS: 71260; Q9967

== ENCOUNTER → 2020-08-07 09:45 | Outpatient (CLI) | payer MEDICARE, SELFPAY ==
[2019-08-08 12:52] VITALS: BMI 28.0
[2020-02-03 13:23] VITALS: BMI 27.4
--- NOTE | 2020-08-07 09:51 | BI_ITS ---
MAMMOGRAPHY - BILATERAL SCREENING REASON FOR EXAM: Female, 79 years old. Routine annual screening examination. PERTINENT HISTORY: Mother with breast cancer. TECHNIQUE: Digital bilateral breast eva (3D mammographic acquisition) in the CC and MLO projections. 2-D mediolateral oblique (MLO) and craniocaudad (CC) views of both breasts were obtained. CAD: Full Field Digital Mammography with Computer Added Detection was performed. COMPARISON: Comparison is made with prior study dated 08/06/2019 and 07/04/2018. FINDINGS: Breast Composition: There are scattered areas of fibroglandular density. There are no dominant masses or suspicious calcifications. No other significant abnormalities are identified. There has been no significant change since the prior study. BI/SCRN MAMM (CAD)W/EVA BILAT IMPRESSION: Stable bilateral screening mammogram. Yearly follow-up mammogram recommended. (A) ASSESSMENT CATEGORY: BIRADS Category 1: Negative. A letter regarding these results will be sent to the patient by the facility within 30 days. Approximately 10% of breast cancers are not detected by mammography. A normal mammogram should not delay biopsy of a clinically suspicious abnormality. [id number] Electronically Signed: Joshua Meyer MD at 11:08 EST , Service support ,
== END ==
PROVIDERS: PCP Family Medicine; Referring Provider Family Medicine; Visit Provider Family Medicine
DX: Z12.31 Encounter for screening mammogram for malignant neoplasm of breast (principal)
CPT/HCPCS: 77063; 77067

== ENCOUNTER → 2020-10-27 10:48 | Outpatient (CLI) | payer MEDICARE, SELFPAY ==
[2020-02-03 13:23] VITALS: BMI 27.4
--- NOTE | 2020-10-27 10:55 | BD_ITS ---
STUDY: DUAL ENERGY X-RAY ABSORPTIOMETRY / DXA REASON FOR EXAM: Female, 80 years old. [id number]. Patient is postmenopausal. Loss of height. TECHNIQUE: Bone Mineral Density (BMD) measurements of lumbar spine and bilateral hips were obtained. COMPARISON: Comparison is made with prior study dated 07/04/2018. FINDINGS: Lumbar Spine (L1-L4): g/cm2 (0.967) / T-score (-1.6) / Z-score (0.2) Findings are suggestive of osteopenia with a moderate fracture risk. Left Femur Total: g/cm2 (0.800) / T-score (-1.6) / Z-score (0.3) Left Femoral Neck: g/cm2 (0.770) / T-score (-1.9) / Z-score (0.2) Right Femur Total: g/cm2 (0.789) / T-score (-1.7) / Z-score (0.2) Right Femoral Neck: g/cm2 (0.781) / T-score (-1.8) / Z-score (0.3) The T-Scores on the most recent prior examination were: Lumbar Spine (L1-L4): There has been improvement of bone density since the previous examination. Left Femur Total: which represents a worsening of 1.6%. Right Femur Total: which represents a worsening of 1.4%. BD/Dexa Bone Density Study IMPRESSION: The patient is considered osteopenic as outlined below according to World Arjun Organization (WHO) criteria with a moderate fracture risk. There has been worsening of bone density since the previous examination. Reference Information: The T-score is the number of standard deviations above or below the standard which is normal for young adults at their peak bone mineral density. The World Health Organization (WHO) interprets the T-scores as follows: Above -1 Normal bone density Between -1 and -2.5 Osteopenia Equal to / or below -2.5 Osteoporosis As a practical clinical guideline, osteopenia may be graded as follows: Mild -1 through -1.5 Moderate -1.6 through -2.0 Severe -2.1 through -2.4 The Z-score is the number of standard deviations above or below age-matched controls. A Z-score of less than -1.5 would be considered abnormal. References: 1. NIH Osteoporosis and Related Bone Diseases www osteo.org 2. International Society for Clinical Densitometry www iscd.org 3. National Osteoporosis Foundation www nof.org Electronically Signed: Joshua Meyer MD at 15:53 EDT , Service support ,
== END ==
PROVIDERS: PCP Family Medicine; Referring Provider Family Medicine; Visit Provider Family Medicine
DX: Z00.00 Encounter for general adult medical examination without abnormal findings (principal); Z78.0 Asymptomatic menopausal state
CPT/HCPCS: 77080

== ENCOUNTER → 2020-11-17 14:17 | Outpatient (CLI) | payer MEDICARE, SELFPAY ==
[2020-02-03 13:23] VITALS: BMI 27.4
[2020-11-17 18:24] LABS: Anion Gap 6 (5-15); BUN 28 mg/dL (7-18); BUN/Creat Ratio 23.1 RATIO (10-20); Calcium,Total 8.8 mg/dL (8.5-10.1); Chloride 104 mmol/L (98-107); Cholesterol 188 mg/dL (200); Creatinine, Serum 1.21 mg/dL (0.55-1.02); EST Glomerular Filtration Rate 46 mL/min (>60); Est Glom Filt Rate - Afr Amer 55 mL/min (>60); Glucose 89 mg/dL (74-106); High Density Lipoprotein 78 mg/dL; Potassium 4.7 mmol/L (3.5-5.1); Sodium Level 139 mmol/L (136-145); Thyroid Stim Hormone (TSH) 2.07 uIU/mL (0.358-3.74); Triglycerides 70 mg/dL; Very Low Density Lipoprotein 14 mg/dL (5-40)
[2020-11-19 12:58] LABS: Vitamin D,25 Hydroxy 57.2 ng/mL
== END ==
PROVIDERS: PCP Family Medicine; Referring Provider Family Medicine; Visit Provider Family Medicine
DX: E55.9 Vitamin D deficiency, unspecified (principal); M81.0 Age-related osteoporosis without current pathological fracture; E78.00 Pure hypercholesterolemia, unspecified; Z13.220 Encounter for screening for lipoid disorders
CPT/HCPCS: 36415; 80048; 80061; 82306; 84443

== ENCOUNTER → 2020-12-24 13:38 | Outpatient (CLI) | payer MEDICARE, SELFPAY ==
[2020-02-03 13:23] VITALS: BMI 27.4
[2020-12-24 18:47] LABS: Anion Gap 8 (5-15); BUN 32 mg/dL (7-18); BUN/Creat Ratio 22.7 RATIO (10-20); Calcium,Total 8.8 mg/dL (8.5-10.1); Chloride 103 mmol/L (98-107); Creatinine, Serum 1.41 mg/dL (0.55-1.02); EST Glomerular Filtration Rate 38 mL/min (>60); Est Glom Filt Rate - Afr Amer 46 mL/min (>60); Glucose 131 mg/dL (74-106); Potassium 4.4 mmol/L (3.5-5.1); Sodium Level 139 mmol/L (136-145)
== END ==
PROVIDERS: PCP Family Medicine; Visit Provider Family Medicine
DX: I10 Essential (primary) hypertension (principal)
CPT/HCPCS: 36415; 80048

== ENCOUNTER → 2021-03-02 14:59 | Outpatient (CLI) | payer MEDICARE, SELFPAY ==
[2021-03-02 18:10] LABS: Anion Gap 7 (5-15); BUN 26 mg/dL (7-18); BUN/Creat Ratio 24.3 RATIO (10-20); Calcium,Total 8.7 mg/dL (8.5-10.1); Chloride 105 mmol/L (98-107); Creatinine, Serum 1.07 mg/dL (0.55-1.02); EST Glomerular Filtration Rate 53 mL/min (>60); Est Glom Filt Rate - Afr Amer 64 mL/min (>60); Glucose 89 mg/dL (74-106); Sodium Level 138 mmol/L (136-145)
== END ==
PROVIDERS: PCP Family Medicine; Visit Provider Family Medicine
DX: I10 Essential (primary) hypertension (principal)
CPT/HCPCS: 36415; 80048

== ENCOUNTER 2021-08-13 09:54 | Outpatient (CLI) | payer MEDICARE, SELFPAY ==
--- NOTE | 2021-08-13 09:56 | BI_ITS ---
MAMMOGRAPHY - BILATERAL SCREENING REASON FOR EXAM: Female, 80 years old. Routine annual screening examination. PERTINENT HISTORY: Mother with breast cancer. TECHNIQUE: Digital bilateral breast eva (3D mammographic acquisition) in the CC and MLO projections. 2-D mediolateral oblique (MLO) and craniocaudad (CC) views of both breasts were obtained. CAD: Full Field Digital Mammography with Computer Added Detection was performed. COMPARISON: Comparison is made with prior study dated 08/07/2020 and 08/06/2019. FINDINGS: Breast Composition: There are scattered areas of fibroglandular density. There are no dominant masses or suspicious calcifications. No other significant abnormalities are identified. There has been no significant change since the prior study. BI/SCRN MAMM (CAD)W/EVA BILAT IMPRESSION: Stable bilateral screening mammogram. Yearly follow-up mammogram recommended. (A) ASSESSMENT CATEGORY: BIRADS Category 1: Negative. A letter regarding these results will be sent to the patient by the facility within 30 days. Approximately 10% of breast cancers are not detected by mammography. A normal mammogram should not delay biopsy of a clinically suspicious abnormality. [id number] Electronically Signed: Joshua Meyer MD at 10:59 EST ,
== END 2021-08-13 23:59 | disposition home or self-care (01) ==
LOC: OPBI 09:55
PROVIDERS: PCP Family Medicine; Referring Provider Family Medicine; Visit Provider Family Medicine
DX: Z12.31 Encounter for screening mammogram for malignant neoplasm of breast (principal); Z80.3 Family history of malignant neoplasm of breast
CPT/HCPCS: 77063; 77067

== ENCOUNTER 2021-09-15 19:07 | Outpatient (CLI) | payer MEDICARE, SELFPAY ==
--- NOTE | 2021-09-15 19:11 | CT_ITS ---
STUDY: CT CHEST WITH CONTRAST REASON FOR EXAM: Female, 80 years old. Dilated thoracic aorta. RADIATION DOSAGE (If Supplied By Facility): CTDIvol = ( 11.365 ) mGy, DLP = ( 350.67 ) mGycm TECHNIQUE: Transaxial imaging was performed following intravenous administration of IV 100mL Isovue-370. Individualized dose optimization techniques were used for this CT. COMPARISON: 12/19/2014 CT chest. FINDINGS: Heart and great vessels: Heart size normal. No dissection or aneurysm of the thoracic aorta. 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 No pulmonary embolus. Lungs, pleura, airways: No pneumonia, edema, or acute abnormality in the lungs. No pleural effusion. No pneumothorax. Scattered calcified granulomas. Mediastinum: No adenopathy or mass or hematoma. Osseous:No acute osseous abnormality. Chest wall: No concerning findings. Upper abdomen: No acute findings. CT/Chest WITH Contrast IMPRESSION: No acute or concerning findings. Ectatic but nonaneurysmal thoracic aorta not significantly changed compared to 12/19/2014. Electronically Signed: Carlton Rivera MD at 23:47 EDT Reading Location ID and State: [facility] / [place] Tel , Service support ,
[2021-09-15 19:41] LABS: CREATININE FINGERSTICK 0.8 mg/dL (0.55-1.02); EGFR FINGERSTICK > 60.0000 mL/min (>60)
== END 2021-09-15 23:59 | disposition home or self-care (01) ==
LOC: CT 19:07
PROVIDERS: PCP Family Medicine; Visit Provider Family Medicine
DX: I71.9 Aortic aneurysm of unspecified site, without rupture (principal)
CPT/HCPCS: 71260

== ENCOUNTER → 2021-12-09 | Outpatient (CLI) | payer MEDICARE, SELFPAY ==
[2021-12-09 10:14] LABS: Vitamin D,25 Hydroxy 49.4 ng/mL
[2021-12-09 10:41] LABS: ALB/GLOB Ratio 0.9 RATIO (0.9-2.4); AST(SGOT) 22 U/L (15-37); Alanine Aminotransfer ALT/SGPT 26 U/L (13-56); Albumin, Serum 3.4 g/dL (3.2-5.0); Alkaline Phosphatase 47 U/L (45-117); Anion Gap 7 (5-15); BUN 25 mg/dL (7-18); BUN/Creat Ratio 24.8 RATIO (10-20); Calcium,Total 8.7 mg/dL (8.5-10.1); Chloride 108 mmol/L (98-107); Cholesterol 201 mg/dL (200); Creatinine, Serum 1.01 mg/dL (0.55-1.02); EST Glomerular Filtration Rate 56 mL/min (>60); Est Glom Filt Rate - Afr Amer 68 mL/min (>60); Globulin 3.6 g/dL (2.2-4.2); Glucose 94 mg/dL (74-106); High Density Lipoprotein 79 mg/dL; Sodium Level 140 mmol/L (136-145); Thyroid Stim Hormone (TSH) 2.65 uIU/mL (0.358-3.74); Triglycerides 66 mg/dL; Very Low Density Lipoprotein 13 mg/dL (5-40)
== END | disposition home or self-care (01) ==
LOC: MFPLAB 08:10
PROVIDERS: PCP Family Medicine; Referring Provider Family Medicine; Visit Provider Family Medicine
DX: I12.9 Hypertensive chronic kidney disease with stage 1 through stage 4 chronic kidney disease, or unspecified chronic kidney disease (principal); F03.90 Unspecified dementia, unspecified severity, without behavioral disturbance, psychotic disturbance, mood disturbance, and anxiety; N18.30 Chronic kidney disease, stage 3 unspecified; E55.9 Vitamin D deficiency, unspecified
CPT/HCPCS: 36415; 80053; 80061; 82306; 84443

== ENCOUNTER → 2021-12-17 | Outpatient (CLI) | payer MEDICARE, SELFPAY ==
--- NOTE | 2021-12-17 14:17 | CT_ITS ---
STUDY: CT BRAIN WITH AND WITHOUT CONTRAST REASON FOR EXAM: Female, 81 years old. Dementia. RADIATION DOSAGE (If Supplied By Facility): CTDIvol = ( 44.99 ) mGy, DLP = ( 1513.48 ) mGycm TECHNIQUE: Transaxial CT imaging of the brain was performed pre and post contrast administration. The examination was performed with intravenous administration of 50 CC ISOVUE 300. Individualized dose optimization techniques were used for this CT. COMPARISON: None. FINDINGS: Normal soft tissue structures. Normal calvarium. Normal size ventricles and extra-axial spaces for the patient''s age. There are areas of decreased attenuation within the white matter tracts of the supratentorial brain, consistent with microvascular disease changes. There are small punctate calcifications of the basal ganglia which are seen in the aging brain as a normal variant. Normal brainstem. Normal cerebellum. There is no intracranial hemorrhage. There are no findings of an acute ischemic infarction. Normal intracranial vasculature. Is no evidence of abnormal contrast enhancement. Normal visualized paranasal sinuses. CT/Brain/Head W/WO Contrast IMPRESSION: Mild microvascular changes without acute bleed or infarct. There is no evidence of vascular abnormality or abnormal contrast enhancement. Electronically Signed: Tyrone Jack DO at 16:03 EDT Reading Location ID and State: [address] [place] [address] Tel [phone], Service support ,
== END | disposition home or self-care (01) ==
LOC: CT 14:14
PROVIDERS: PCP Family Medicine; Visit Provider Family Medicine
DX: F03.90 Unspecified dementia, unspecified severity, without behavioral disturbance, psychotic disturbance, mood disturbance, and anxiety (principal)
CPT/HCPCS: 70470; Q9967

== ENCOUNTER → 2022-04-11 | Outpatient (CLI) | payer MEDICARE, SELFPAY ==
--- NOTE | 2022-04-11 13:37 | ECHOCS_ITS ---
Reason For Study: Murmur Procedure This was a 2D Doppler, Color Flow transthoracic echocardiogram. The study was technically difficult. Contrast injection was performed. Exam performed in department. Left Ventricle Normal LV size. Left ventricular systolic function is normal. The estimated ejection fraction is 55 %. Septal bounce. Diastolic function is indeterminate. Right Ventricle Normal RV size. Normal systolic function. Atria Normal left atrium. Normal right atrium. No doppler evidence for ASD. Mitral Valve There is no mitral annular calcification. Normal mitral valve. Mild (1+) mitral valve insufficiency. Tricuspid Valve Normal tricuspid valve. Mild tricuspid valve insufficiency. Right ventricular systolic pressure estimated to be 28 mmHg. Aortic Valve Trisinus/trileaflet aortic valve. Mild focal aortic valve thickening. Mild (1+) aortic valve insufficiency. Pulmonic Valve The pulmonic valve is not well visualized. Trivial pulmonic valve insufficiency. Great Vessels Mildly dilated aortic root. Pericardium/Pleural No pericardial effusion. Medication Performed a rapid injection of agitated mix of 9 cc saline and 1cc air to assess for atrial septal defect. Diluted definity 4ml given slow IV push to enhance endocardial definition. MMode/2D Measurements & Calculations LVIDd: 3.9 cm IVSd: 1.1 cm Ao root diam: 4.0 cm LVIDs: 3.3 cm LVPWd: 1.0 cm RVDd: 3.3 cm FS: 15.3 % LAV(MOD-bp): 39.6 ml LA A4 area: 11.2 cm2 LA dimension(2D): 2.9 cm LAV(MOD-bp) Indexed: 21.9 ml/m2 LAV(MOD-sp2): 55.8 ml LAV(MOD-sp4): 23.4 ml RA A4 area: 12.7 cm2 Doppler Measurements & Calculations MV E max henry: 55.6 cm/sec Lat Peak E' Henry: 4.0 cm/sec Med Peak E' Henry: 6.1 cm/sec MV A max henry: 85.9 cm/sec E/E' lat: 13.8 E/E' med: 9.1 MV E/A: 0.65 Ao V2 max: 151.5 cm/sec AI max henry: 408.8 cm/sec LV V1 max: 92.8 cm/sec Ao max P.2 mmHg AI max P.9 mmHg LV V1 max P.4 mmHg Ao V2 mean: 106.5 cm/sec AI dec slope: 274.5 cm/sec2 Ao mean P.1 mmHg AI P1/2t: 436.2 msec Ao V2 VTI: 26.6 cm PA V2 max: 100.0 cm/sec TR max henry: 251.2 cm/sec TR max P.2 mmHg ECHO/Echo Complete W/ Contrast Interpretation Summary The study was technically difficult. Contrast injection was performed. Left ventricular systolic function is normal. The estimated ejection fraction is 55 %. Septal bounce. Mild (1+) mitral valve insufficiency. Mild tricuspid valve insufficiency. Mild focal aortic valve thickening. Mild (1+) aortic valve insufficiency. Trivial pulmonic valve insufficiency. Mildly dilated aortic root. Right ventricular systolic pressure estimated to be 28 mmHg. Diastolic function is indeterminate. Ordering Physician: Nora Ross Referring Physician: Ric Ca Performed By: Krista Pinto, FARIDEH, RVT
== END | disposition home or self-care (01) ==
LOC: CVS 13:36
PROVIDERS: PCP Family Medicine; Referring Provider Physician Assistant Medical; Visit Provider Physician Assistant Medical
DX: I35.0 Nonrheumatic aortic (valve) stenosis (principal); R01.1 Cardiac murmur, unspecified
CPT/HCPCS: 93306; Q9957; A4216; C8929

== ENCOUNTER → 2022-06-02 | Outpatient (CLI) | payer MEDICARE, SELFPAY ==
[2022-06-02 15:32] LABS: Anion Gap 5 (5-15); BUN 35 mg/dL (7-18); BUN/Creat Ratio 25.4 RATIO (10-20); Calcium,Total 8.9 mg/dL (8.5-10.1); Chloride 107 mmol/L (98-107); Creatinine, Serum 1.38 mg/dL (0.55-1.02); EST Glomerular Filtration Rate 39 mL/min (>60); Est Glom Filt Rate - Afr Amer 47 mL/min (>60); Glucose 102 mg/dL (74-106); Sodium Level 140 mmol/L (136-145)
[2022-06-02 15:54] LABS: Vitamin D,25 Hydroxy 42.8 ng/mL
== END | disposition home or self-care (01) ==
LOC: MFPLAB 14:01
PROVIDERS: PCP Family Medicine; Referring Provider Family Medicine; Visit Provider Family Medicine
DX: G47.00 Insomnia, unspecified (principal); E55.9 Vitamin D deficiency, unspecified
CPT/HCPCS: 36415; 80048; 82306

== ENCOUNTER → 2023-01-05 | Outpatient (CLI) | payer MEDICARE, SELFPAY ==
--- NOTE | 2023-01-05 14:30 | BI_ITS ---
MAMMOGRAPHY - BILATERAL SCREENING REASON FOR EXAM: Female, 82 years old. Routine annual screening examination. PERTINENT HISTORY: Mother with breast cancer. TECHNIQUE: Digital bilateral breast eva (3D mammographic acquisition) in the CC and MLO projections. 2-D mediolateral oblique (MLO) and craniocaudad (CC) views of both breasts were obtained. CAD: Full Field Digital Mammography with Computer Added Detection was performed. COMPARISON: Comparison is made with prior study dated August 13, 2021 and August 07, 2020. FINDINGS: Breast Composition: There are scattered areas of fibroglandular density. There are no dominant masses or suspicious calcifications. No other significant abnormalities are identified. There has been no significant change since the prior study. BI/SCRN MAMM (CAD)W/EVA BILAT IMPRESSION: Stable bilateral screening mammogram. Yearly follow-up mammogram recommended. (A) ASSESSMENT CATEGORY: BIRADS Category 1: Negative. A letter regarding these results will be sent to the patient by the facility within 30 days. Approximately 10% of breast cancers are not detected by mammography. A normal mammogram should not delay biopsy of a clinically suspicious abnormality. [id number] Electronically Signed: Joshua Meyer MD at 8:14 EDT ,
--- NOTE | 2023-01-05 14:41 | BD_ITS ---
STUDY: DUAL ENERGY X-RAY ABSORPTIOMETRY / DXA REASON FOR EXAM: Female, 82 years old. Z780 TECHNIQUE: Bone Mineral Density (BMD) measurements of lumbar spine and left hip were obtained. COMPARISON: Comparison is made with prior study dated October 27, 2020. FINDINGS: Lumbar Spine (L1-L4): g/cm2 (0.951) / T-score (-0.9) / Z-score (1.9) Findings are suggestive of normal bone density with a low fracture risk. Left Femur Total: g/cm2 (0.748) / T-score (-1.6) / Z-score (0.5) Left Femoral Neck: g/cm2 (0.615) / T-score (-2.1) / Z-score (0.3) The T-Scores on the most recent prior examination were: Lumbar Spine (L1-L4): There has been improvement of bone density since the previous examination. Left Femur Total: which represents an improvement of 1.1%. BD/Dexa Bone Density Study IMPRESSION: The patient is considered osteopenic as outlined below according to World Arjun Organization (WHO) criteria with a moderate fracture risk. There has been improvement of bone density since the previous examination. Reference Information: The T-score is the number of standard deviations above or below the standard which is normal for young adults at their peak bone mineral density. The World Health Organization (WHO) interprets the T-scores as follows: Above -1 Normal bone density Between -1 and -2.5 Osteopenia Equal to / or below -2.5 Osteoporosis As a practical clinical guideline, osteopenia may be graded as follows: Mild -1 through -1.5 Moderate -1.6 through -2.0 Severe -2.1 through -2.4 The Z-score is the number of standard deviations above or below age-matched controls. A Z-score of less than -1.5 would be considered abnormal. References: 1. NIH Osteoporosis and Related Bone Diseases www osteo.org 2. International Society for Clinical Densitometry www iscd.org 3. National Osteoporosis Foundation www nof.org Electronically Signed: Joshua Meyer MD at 9:50 EDT ,
== END | disposition home or self-care (01) ==
LOC: LAB.FUTURE 14:28
PROVIDERS: PCP Family Medicine; Referring Provider Family Medicine; Visit Provider Family Medicine
DX: Z12.31 Encounter for screening mammogram for malignant neoplasm of breast (principal); Z78.0 Asymptomatic menopausal state
CPT/HCPCS: 77063; 77067; 77080

== ENCOUNTER → 2023-03-20 | Outpatient (CLI) | payer MEDICARE, SELFPAY ==
[2023-03-20 10:35] LABS: Absolute Lymphocyte Count 1.17 X10^3/uL (0.83-4.51); Absolute Neutrophil Count 2.3 X10^3/uL (2.0-7.7); Basophil# 0.04 X10^3/uL; Basophil% 0.9 % (0-1); Eosinophil# 0.14 X10^3/uL; Eosinophils% 3.3 % (0-5); Hematocrit 30.5 % (37-47); Hemoglobin 9.7 g/dL (12.0-15.0); Lymphocyte # 1.17 X10^3/ul (0.83-4.51); Lymphocyte % 27.6 % (19-41); Mean Corp Hgb Conc 31.8 g/dL (32-36); Mean Corpuscular Hgb 32.2 pg (27.0-32.0); Mean Corpuscular Volume 101.3 fL (81-99); Monocyte# 0.53 X10^3/uL; Monocyte% 12.5 % (0-10); NRBC Flagged by Analyzer 0 % (0-5); Neutrophil # 2.34 X10^3/uL (2.7-7.7); Neutrophil % 55.2 % (47-70); Platelet Count 156 K/mm3 (150-450); RBC Distribution Width CV 12.2 % (11.6-14.6); RBC Distribution Width SD 45.3 fl (35.1-43.9); Red Blood Count 3.01 M/mm3 (4.2-5.4); White Blood Count 4.2 K/mm3 (4.4-11.0)
[2023-03-20 10:59] LABS: AST(SGOT) 25 U/L (15-37); Alanine Aminotransfer ALT/SGPT 25 U/L (13-56); Albumin, Serum 3.2 g/dL (3.2-5.0); Alkaline Phosphatase 65 U/L (45-117); Anion Gap 4 (5-15); BUN 22 mg/dL (7-18); BUN/Creat Ratio 18.2 RATIO (10-20); Calcium,Total 8.3 mg/dL (8.5-10.1); Chloride 113 mmol/L (98-107); Cholesterol 191 mg/dL (200); Creatinine, Serum 1.21 mg/dL (0.55-1.02); EST Glomerular Filtration Rate 45 mL/min (>60); Est Glom Filt Rate - Afr Amer 55 mL/min (>60); Globulin 3.3 g/dL (2.2-4.2); Glucose 97 mg/dL (74-106); High Density Lipoprotein 72 mg/dL; Potassium 4.5 mmol/L (3.5-5.1); Protein, Total 6.5 g/dL (6.4-8.2); Sodium Level 143 mmol/L (136-145); Triglycerides 67 mg/dL; Very Low Density Lipoprotein 13 mg/dL (5-40)
== END | disposition home or self-care (01) ==
LOC: MTLAB 08:40
PROVIDERS: PCP Family Medicine; Referring Provider Family Medicine; Visit Provider Family Medicine
DX: I12.9 Hypertensive chronic kidney disease with stage 1 through stage 4 chronic kidney disease, or unspecified chronic kidney disease (principal); N18.30 Chronic kidney disease, stage 3 unspecified; E55.9 Vitamin D deficiency, unspecified
CPT/HCPCS: 36415; 80053; 80061; 85025

== ENCOUNTER → 2023-04-06 | Outpatient (CLI) | payer MEDICARE, SELFPAY ==
[2023-04-06 15:25] LABS: Absolute Lymphocyte Count 1.11 X10^3/uL (0.83-4.51); Absolute Neutrophil Count 2.3 X10^3/uL (2.0-7.7); Basophil# 0.02 X10^3/uL; Basophil% 0.5 % (0-1); Eosinophil# 0.16 X10^3/uL; Eosinophils% 3.8 % (0-5); Hemoglobin 9.4 g/dL (12.0-15.0); Lymphocyte # 1.11 X10^3/ul (0.83-4.51); Lymphocyte % 26.7 % (19-41); Mean Corp Hgb Conc 30.3 g/dL (32-36); Mean Corpuscular Hgb 30.9 pg (27.0-32.0); Mean Platelet Vol. 12.1 fl (6.2-12.0); Monocyte# 0.53 X10^3/uL; Monocyte% 12.7 % (0-10); NRBC Flagged by Analyzer 0 % (0-5); Neutrophil # 2.32 X10^3/uL (2.7-7.7); Neutrophil % 55.8 % (47-70); Platelet Count 173 K/mm3 (150-450); RBC Distribution Width CV 12.3 % (11.6-14.6); RBC Distribution Width SD 46.1 fl (35.1-43.9); RET-HE 33.6 pg (30-35); Red Blood Count 3.04 M/mm3 (4.2-5.4); Reticulocyte Count 1.77 % (0.5-1.5); White Blood Count 4.2 K/mm3 (4.4-11.0)
[2023-04-06 16:00] LABS: Ferritin 39 ng/mL (8-252); Iron 65 ug/dL (50-170); Iron Binding Capacity,Total 282 ug/dL (250-450)
[2023-04-06 16:04] LABS: Vitamin B12 274 pg/mL (211-911); Vitamin D,25 Hydroxy 30.1 ng/mL
[2023-04-07 06:08] LABS: Ionized Calcium 4.98 mg/dL (4.36-5.20)
[2023-04-07 07:34] LABS: PTHIN 68.3 pg/mL (18.4-80.1)
== END | disposition home or self-care (01) ==
LOC: MFPLAB 14:12
PROVIDERS: PCP Family Medicine; Visit Provider Family Medicine
DX: N18.30 Chronic kidney disease, stage 3 unspecified (principal); D64.9 Anemia, unspecified
CPT/HCPCS: 36415; 82306; 82330; 82607; 82728; 83540; 83550; 83970; 85025; 85045

== ENCOUNTER → 2023-07-17 | Outpatient (CLI) | payer MEDICARE, SELFPAY ==
[2023-07-17 12:17] LABS: Hematocrit 33.6 % (37-47); Hemoglobin 10.7 g/dL (12.0-15.0); Mean Corp Hgb Conc 31.8 g/dL (32-36); Mean Corpuscular Hgb 31.3 pg (27.0-32.0); Mean Corpuscular Volume 98.2 fL (81-99); Mean Platelet Vol. 12.1 fl (6.2-12.0); Platelet Count 214 K/mm3 (150-450); RBC Distribution Width CV 11.9 % (11.6-14.6); RBC Distribution Width SD 42.7 fl (35.1-43.9); Red Blood Count 3.42 M/mm3 (4.2-5.4)
--- OUTSIDE RECORDS SUMMARY | 2023-07-17 12:24 | XMS RPT_ITS | CCD ---
Author Name Unknown Address [address] [place] [address] Organization [facility] Care Team Providers Care Planning Rn Name Role Phone Fermin Avery Unavailable Unavailable Fermin Avery Unavailable Unavailable Everardo RN, Nora Hooks Unavailable [phone] Bertha Granger Unavailable Unavailable Allergies Allergy Classification Reported Allergen(s) Allergy Type Date of Onset Reaction(s) Facility (4 sources) estrogens, conjugated (jail) / medroxyPROGESTERone drug allergy 1 Leg cramps [facility] Work Phone: Medications Completed/Discontinued Medications Medication Drug Class(es) Dates Sig (Normalized) Sig (Original) alendronic acid 70 mg oral tablet (16 sources) Bisphosphonate Start: 01-07-2013 take 1 tablet by mouth every week FOSAMAX 70 MG TABS One tablet by mouth weekly ALENDRONATE SODIUM [id number] Hremes Yoon MD Problems Active Problems Problem Classification Problem Date Documented Da te Episodic/Chronic Aortic; peripheral; and visceral artery aneurysms (12 sources) Aneurysm; 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] Onset: 09-08-2010 Resolved: 01-12-2012 01-12-2012 Chronic Cardiac dysrhythmias (4 sources) Premature atrial contraction; Translations: [Atrial premature depolarization] Onset: 01-12-2012 01-12-2012 Chronic Conduction disorders (8 sources) Bundle branch block; Translations: [Left bundle branch hemiblock] Onset: 01-12-2012 01-12-2012 Chronic Disorders of lipid metabolism (4 sources) Hyperlipidemia; Translations: [Hyperlipidemia, unspecified] Onset: 09-08-2010 09-08-2010 Chronic Heart valve disorders (8 sources) Mitral valve stenosis; Translations: [Aortic valve stenosis] Onset: 02-09-2015 02-09-2015 Chronic Unclassified (1 source) Long-term drug therapy; Translations: [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] Onset: 09-08-2010 09-08-2010 Past or Other Problems Problem Classification Problem Date Documented Date Episodic/Chronic Cardiac dysrhythmias (4 sources) Palpitations; Translations: [Palpitations] Onset: 09-08-2010 09-08-2010 Episodic Nonspecific chest pain (8 sources) Precordial pain; Translations: [Chest discomfort] Onset: 09-08-2010 09-08-2010 Episodic Other aftercare (3 sources) 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; Translations: [Other fpc (current) drug therapy] Onset: 09-08-2010 09-08-2010 Episodic Other circulatory disease (4 sources) Electrocardiogram abnormal; Translations: [Abnormal electrocardiogram [ECG] [EKG]] Onset: 09-08-2010 09-08-2010 Episodic Other lower respiratory disease (4 sources) Dyspnea; Translations: [Shortness of breath] Onset: 09-08-2010 09-08-2010 Episodic Other nutritional; endocrine; and metabolic disorders (11 sources) Body mass index (BMI) 28.0-28.9, adult; Translations: [Body mass index (BMI) 29.0-29.9, adult] Onset: 01-06-2014 01-11-2016 Episodic Other nutritional; endocrine; and metabolic disorders (1 source) Body mass index (BMI) 29.0-29.9, adult; Translations: [Body mass index (BMI) 29.0-29.9, adult] Onset: 01-06-2014 01-06-2014 Episodic Results Test Name Value Interpretation Reference Range [facility] ity Vital Signs Date Time Vital Sign Value Performing Clinician Yaya morris 01-06-2017 10:02-0400 BMI (Body Mass Index) 27.81 kg/m2 [facility] Work Phone: 01-06-2017 10:02-0400 BP Diastolic 72 mm[Hg] [facility] Work Phone: 01-06-2017 10:02-0400 BP Systolic 132 mm[Hg] [facility] Work Phone: 01-06-2017 10:02-0400 Height 160.02 cm [facility] Work Phone: 01-06-2017 10:02-0400 Pulse (Heart Rate) 88 /min [facility] Work Phone: 01-06-2017 10:02-0400 Respiratory Rate 16 /min [facility] Work Phone: 01-06-2017 10:02-0400 Weight 71.22 kg [facility] Work Phone: 01-11-2016 11:20-0400 BMI (Body Mass Index) 28.46 kg/m2 [facility] Work Phone: 01-11-2016 11:20-0400 BP Diastolic 70 mm[Hg] Nora Mcgee RN [facility] Work Phone: 01-11-2016 11:20-0400 BP Systolic 114 mm[Hg] Nora Mcgee RN [facility] Work Phone: 01-11-2016 11:20-0400 BSA (Body Surface Area) 1.76 m2 Nora Mcgee RN [facility] Work Phone: 01-11-2016 11:20-0400 Pulse (Heart Rate) 72 /min [facility] Work Phone: 01-11-2016 11:20-0400 Respiratory Rate 14 /min [facility] Work Phone: 01-11-2016 11:20-0400 Weight 72.89 kg Nora Mcgee RN [facility] Work Phone: 01-07-2013 09:30-0400 Heart rate 460 ms [facility] Work Phone: 01-07-2013 09:30-0400 Heart rate 71 /min [facility] Work Phone: 12-30-2011 10:36-0400 Height 160.02 cm [facility] Work Phone: Procedures Date Procedure Procedure Detail Performing Clinician Start: 01-06-2017 End: 01-06-2017 Dietary management education, guidance, and counseling Marcmikey Granger Start: 01-06-2017 End: 01-06-2017 Follow Up Appt 1 year Hermes Horne Start: 01-06-2017 End: 01-06-2017 PFAlvina Yoon MD Start: 01-15-2016 End: 01-15-2016 Ct thorax w/dye Hermes Yoon MD Start: 01-11-2016 End: 12-30-2016 Follow Up Appt 1 year Hermes Horne Start: 01-11-2016 End: 12-30-2016 PFM Hermes Yoon MD Start: 01-09-2015 End: 01-10-2015 Documentation of current medications Hermes Yoon MD Start: 01-09-2015 End: 01-15-2016 Follow Up Appt 1 year Hermes Horne Start: 01-09-2015 End: 01-15-2016 PFM Hermes Yoon MD Start: 01-06-2014 End: 01-06-2014 Follow Up Appt 1 year Hermes Horne Start: 01-06-2014 End: 01-06-2014 PFM Hermes Yoon MD Start: 01-07-2013 End: 01-07-2013 Electrocardiogram, complete Nora Clemons PA-C Work Phone: Start: 01-07-2013 End: 01-07-2013 Follow Up Appt 6 months Nora kwon PA-C Work Phone: Start: 01-07-2013 End: 01-15-2016 Nuclear stress test -adenosine Nora Ross PA-C Work Phone: Start: 01-07-2013 End: 01-07-2013 PFM Nora Ross PA-C Work Phone: Start: 12-30-2011 End: 12-30-2011 Follow Up Appt 1 year Hermes Horne Plan of Treatment Date Care Activity Detail Author Start: 01-08-2018 End: 01-08-2018 Appointment Appointment [facility] Work Phone: Start: 01-06-2017 End: 01-06-2017 Appointment Appointment [facility] Work Phone: Start: 01-06-2017 End: 01-06-2017 Follow Up Appt 1 year Follow Up Appt 1 year [facility] Work Phone: Start: 01-06-2017 End: 01-06-2017 Follow Up Appt Other Follow Up Appt Other [facility] Work Phone: Start: 01-06-2017 End: 01-06-2017 PFM PFM [facility] Work Phone: Start: 01-11-2016 End: 01-11-2016 Ct thorax w/dye CT Chest with Contrast [facility] Work Phone: Start: 01-11-2016 End: 12-30-2016 Follow Up Appt 1 year Follow Up Appt 1 year [facility] Work Phone: Start: 01-11-2016 End: 12-30-2016 PFM PFM [facility] Work Phone: Start: 01-09-2015 End: 01-15-2016 Follow Up Appt 1 year Follow Up Appt 1 year [facility] Work Phone: Start: 01-09-2015 End: 01-15-2016 PFM PFM [facility] Work Phone: Start: 01-06-2014 End: 01-06-2014 Follow Up Appt 1 year Follow Up Appt 1 year [facility] Work Phone: Start: 01-06-2014 End: 01-06-2014 PFM PFAlvina [facility] Work Phone: Start: 01-07-2013 End: 01-07-2013 Electrocardiogram, complete EKG (In office) [facility] Work Phone: Start: 01-07-2013 End: 01-07-2013 Follow Up Appt 6 months Follow Up Appt 6 months [facility] Work Phone: Start: 01-07-2013 End: 01-07-2013 Nuclear stress test -adenosine Nuclear stress test -adenosine [facility] Work Phone: Start: 01-07-2013 End: 01-07-2013 PFM PFAlvina [facility] Work Phone: Start: 12-30-2011 End: 12-30-2011 Follow Up Appt 1 year Follow Up Appt 1 year [facility] Work Phone: Additional Source Comments FOR RECORDS PERTAINING TO PATIENTS WHO ARE OR HAVE BEEN ENROLLED IN A CHEMICAL DEPENDENCY/SUBSTANCEABUSE PROGRAM, SOME INFORMATION MAY BE OMITTED. This clinical summary was aggregated from multiple sources. Caution should be exercised in using it in the provision of clinical care. This summary normalizes information from multiple sources, and as a consequence, information in this document may materially change the coding, format and clinical context of patient data. In addition, data may be omitted in some cases. CLINICAL DECISIONS SHOULD BE BASED ON THE PRIMARY CLINICAL RECORDS. [employer] [facility]. provides no warranty or guarantee of the accuracy or completeness of information in this document.
[2023-07-17 13:26] LABS: ALB/GLOB Ratio 0.7 RATIO (0.9-2.4); AST(SGOT) 20 U/L (15-37); Alanine Aminotransfer ALT/SGPT 19 U/L (13-56); Albumin, Serum 3.2 g/dL (3.2-5.0); Alkaline Phosphatase 87 U/L (45-117); Anion Gap 6 (5-15); BUN 17 mg/dL (7-18); BUN/Creat Ratio 14.7 RATIO (10-20); Calcium,Total 8.8 mg/dL (8.5-10.1); Chloride 109 mmol/L (98-107); Creatinine, Serum 1.16 mg/dL (0.55-1.02); EST Glomerular Filtration Rate 48 mL/min (>60); Est Glom Filt Rate - Afr Amer 58 mL/min (>60); Ferritin 82 ng/mL (8-252); Globulin 4.3 g/dL (2.2-4.2); Glucose 100 mg/dL (74-106); Iron 73 ug/dL (50-170); Potassium 3.9 mmol/L (3.5-5.1); Protein, Total 7.5 g/dL (6.4-8.2); Sodium Level 141 mmol/L (136-145); Thyroid Stim Hormone (TSH) 2.36 uIU/mL (0.358-3.74)
== END | disposition home or self-care (01) ==
LOC: MFPLAB 10:52
PROVIDERS: PCP Family Medicine; Visit Provider Family Medicine
DX: R60.9 Edema, unspecified (principal); D64.9 Anemia, unspecified
CPT/HCPCS: 36415; 80053; 82728; 83540; 84443; 85027

== ENCOUNTER → 2023-09-18 | Outpatient (CLI) | payer MEDICARE, SELFPAY ==
--- NOTE | 2023-09-18 10:52 | RAD_ITS ---
STUDY: X-RAY - RIGHT RADIUS AND ULNA REASON FOR EXAM: Female, 82 years old. Pain following a fall. TECHNIQUE: 2 view(s) of the forearm. COMPARISON: None. FINDINGS: Soft tissue swelling. Nondisplaced comminuted fracture of the distal radial metaphysis with extension to the articular surface. Normal visualized ulna. RAD/Forearm 2 Views IMPRESSION: Nondisplaced, fracture of the distal radial metaphysis with extension to the articular surface. Soft tissue swelling. Electronically Signed: Joshua Meyer MD at 11:13 EDT ,
--- NOTE | 2023-09-18 10:52 | RAD_ITS ---
STUDY: X-RAY - RIGHT WRIST REASON FOR EXAM: Female, 82 years old. Pain following injury. TECHNIQUE: 3 view(s) of the wrist were obtained. COMPARISON: None. FINDINGS: Nondisplaced comminuted fracture of the distal radial metaphysis with extension to the articular surface. Normal radiocarpal articulation. Normal distal radioulnar articulation. Normal carpal bones. Normal carpal articulations. Normal carpometacarpal articulation of the thumb. Normal second through fifth carpometacarpal articulations. Normal visualized metacarpal bones. Soft tissue swelling. RAD/Wrist min 3 Views IMPRESSION: Nondisplaced comminuted fracture of the distal radial metaphysis with extension of the articular surface. Overlying soft tissue swelling. Electronically Signed: Joshua Meyer MD at 11:14 EDT ,
== END | disposition home or self-care (01) ==
PROVIDERS: PCP Family Medicine; Referring Provider Family Medicine; Visit Provider Family Medicine
DX: S50.11XA Contusion of right forearm, initial encounter (principal); M25.531 Pain in right wrist; X58.XXXA Exposure to other specified factors, initial encounter
CPT/HCPCS: 73090; 73110

== ENCOUNTER → 2024-04-15 | Outpatient (CLI) | payer MEDICARE, SELFPAY ==
[2024-04-15 12:21] LABS: Hematocrit 31.3 % (37-47); Hemoglobin 10.1 g/dL (12.0-15.0); Mean Corp Hgb Conc 32.3 g/dL (32-36); Mean Corpuscular Hgb 32.5 pg (27.0-32.0); Mean Corpuscular Volume 100.6 fL (81-99); Mean Platelet Vol. 12.5 fl (6.2-12.0); Platelet Count 195 K/mm3 (150-450); RBC Distribution Width CV 12.2 % (11.6-14.6); RBC Distribution Width SD 45.2 fl (35.1-43.9); Red Blood Count 3.11 M/mm3 (4.2-5.4); White Blood Count 4.7 K/mm3 (4.4-11.0)
[2024-04-15 12:44] LABS: Vitamin D,25 Hydroxy 57.2 ng/mL
[2024-04-15 13:30] LABS: ALB/GLOB Ratio 0.8 RATIO (0.9-2.4); AST(SGOT) 23 U/L (15-37); Alanine Aminotransfer ALT/SGPT 27 U/L (13-56); Albumin, Serum 3.2 g/dL (3.2-5.0); Alkaline Phosphatase 60 U/L (45-117); Anion Gap 4 (5-15); BUN 30 mg/dL (7-18); BUN/Creat Ratio 19.9 RATIO (10-20); Calcium,Total 9.3 mg/dL (8.5-10.1); Chloride 110 mmol/L (98-107); Cholesterol 199 mg/dL (200); Creatinine, Serum 1.51 mg/dL (0.55-1.02); EST Glomerular Filtration Rate 35 mL/min (>60); Est Glom Filt Rate - Afr Amer 42 mL/min (>60); Glucose 111 mg/dL (74-106); High Density Lipoprotein 77 mg/dL; Iron 95 ug/dL (50-170); Potassium 4.1 mmol/L (3.5-5.1); Protein, Total 7.2 g/dL (6.4-8.2); Sodium Level 140 mmol/L (136-145); Triglycerides 86 mg/dL; Very Low Density Lipoprotein 17 mg/dL (5-40)
== END | disposition home or self-care (01) ==
LOC: MFPLAB 10:42
PROVIDERS: PCP Family Medicine; Visit Provider Family Medicine
DX: I12.9 Hypertensive chronic kidney disease with stage 1 through stage 4 chronic kidney disease, or unspecified chronic kidney disease (principal); F03.90 Unspecified dementia, unspecified severity, without behavioral disturbance, psychotic disturbance, mood disturbance, and anxiety; N18.30 Chronic kidney disease, stage 3 unspecified
CPT/HCPCS: 36415; 80053; 80061; 82306; 83540; 84443; 85027

== ENCOUNTER → 2024-05-13 | Outpatient (CLI) | payer MEDICARE, SELFPAY ==
[2024-05-13 15:45] LABS: Anion Gap 4 (5-15); BUN 31 mg/dL (7-18); Calcium,Total 9.1 mg/dL (8.5-10.1); Chloride 111 mmol/L (98-107); Creatinine, Serum 1.55 mg/dL (0.55-1.02); EST Glomerular Filtration Rate 34 mL/min (>60); Est Glom Filt Rate - Afr Amer 41 mL/min (>60); Glucose 90 mg/dL (74-106); Potassium 4.5 mmol/L (3.5-5.1); Sodium Level 141 mmol/L (136-145)
== END | disposition home or self-care (01) ==
LOC: MFPLAB 12:04
PROVIDERS: PCP Family Medicine; Visit Provider Family Medicine
DX: I10 Essential (primary) hypertension (principal)
CPT/HCPCS: 36415; 80048